=== PATIENT | male | born 1985 | race Caucasian/White ===

== ENCOUNTER 2016-03-27 15:33 | Emergency (ER) | payer OTHER ==
[2016-03-27] MEDS ORDERED: METOCLOPRAMIDE HCL 5 MG/ML 2ML VIAL ONE (16:06)
[2016-03-27] MEDS ORDERED: ONDANSETRON 4 MG ODT TAB ONE (16:06)
[2016-03-27] MEDS ORDERED: KETOROLAC TROMETHAMINE 60 MG/2 ML VIAL ONE (16:06)
[2016-03-27] MEDS ORDERED: DIPHENHYDRAMINE HCL 50 MG/1 ML VIAL ONE (16:06)
--- NOTE | 2016-03-27 17:47 | CT ---
HEAD W/O CON, C-SPINE W/O CON: 03/27/2016 4:02 PM CLINICAL HISTORY: Patient fell backwards and hit head. Initial encounter. COMPARISON: 07/18/2015 TECHNIQUE: Contiguous axial 5 mm images from skull base to the vertex were obtained without IV contrast. Sagittal and coronal reformations with bone algorithm images were also obtained at this time. CT DI:: 51.7 DLP: 938.9 FINDINGS: Infarct: None Extra axial spaces: Normal in size and morphology for the patient's age. Hemorrhage: None. Ventricular system: Normal in size and morphology for the patient's age. Basal cisterns: Normal. Cerebral parenchyma: Normal. Midline shift: None. Cerebellum: Normal. Brainstem: Normal. OTHER: Calvarium: Normal. Vascular system: Normal. Visualized Paranasal sinuses and Mastoid air cells: Clear. Visualized Orbits and regional soft tissues: Normal. IMPRESSION: No acute intracranial process. Indications: Patient fell backward and hit head. Initial encounter. Comparisons: CT cervical spine 07/18/2015 Technique: Contiguous axial 2 mm images of the cervical spine are obtained without IV contrast. Sagittal and coronal reformations are also obtained at this time. CT DI: 18.1 DLP: 399.7 Findings: Alignment: Normal Prevertebral Soft Tissue Swelling: None Bones: No fracture or dislocation Degenerative Changes: None Regional Soft tissues and Lung Apices: Normal Impression: No fracture or dislocation. Findings were called to Dr. Aguilar at approximately 1642 hours on 03/27/2016.
== END 2016-03-27 17:25 | disposition home or self-care (01) ==
LOC: ED 15:33
DX: F07.81 Postconcussional syndrome (principal); R55 Syncope and collapse; S00.03XA Contusion of scalp, initial encounter; M54.2 Cervicalgia; W01.198A Fall on same level from slipping, tripping and stumbling with subsequent striking against other object, initial encounter; Y92.69 Other specified industrial and construction area as the place of occurrence of the external cause; Y99.0 Civilian activity done for income or pay
CPT/HCPCS: 72125; 70450; 99283 ×2; 96372 ×3; J1200; J2765; J1885; A9270